=== PATIENT | male | born 1950 | race Caucasian/White ===

== ENCOUNTER 2019-12-15 10:42 | Day surgery (SDC) | payer MEDICARE, BC ==
[~2019-12-15 10:42] MED LIST: Lactated Ringers 1,000 ML IV SCH; Sodium Chloride 0.9% 10 ML Syringe FLUSH PRN
[2019-12-15] MEDS ORDERED: Propofol 200 MG/20 ML SDV ONE ×2 (11:48→13:24)
[2019-12-15] MEDS ORDERED: fentaNYL 100 MCG/2 ML SDV ONE (11:48)
[2019-12-15 14:26] VITALS: BP 150/73; PULSE 49
--- NOTE | 2019-12-15 19:15 | OR ---
PRE-OPERATIVE DIAGNOSES: 1. History of colon cancer status post left hemicolectomy back in 2001. 2. History of colon polyps. The patient's last colonoscopy in 01/2016 was normal. POST-OPERATIVE DIAGNOSES: 1. 3 tiny polyps removed using cold forceps. a. 2 mm polyp at 85 cm. b. 3 mm polyp at 65 cm. c. 2 mm polyp at 50 cm. 2. Rths-bj-pokhelam left-sided diverticulosis. 3. Previous anastomosis site at 10 to 15 cm, which was normal in appearance. 4. Mild hemorrhoids. PROCEDURE: colonoscopy with polypectomy x3 using cold forceps. ANESTHESIA: Monitored anesthesia care. BOWEL PREP: Fair to good. Elfego is a 69-year-old male, who was brought to the endoscopy suite after discussing risks and benefits of the procedure. Informed consent was obtained for conscious sedation and colonoscopy with or without biopsy and/or polypectomy. We also discussed possibility of missed lesions. Pre-procedure exam was unremarkable. IV, oxygen, and monitors were placed. The patient was placed in the left lateral decubitus position. Sedation was administered and a digital rectal exam was performed and unremarkable except for some mild hemorrhoids. Colonoscope was passed into the rectum and slowly advanced all the way to the cecum. Cecum was viewed and photographed. The colonoscope was slowly withdrawn and the mucosa was closed observed in a direct circumferential manner. The ascending colon revealed 2 mm polyp at 85 cm, removed using cold forceps. The Transverse colon revealed a 3 mm polyp at 65 cm, removed using cold forceps. Descending colon revealed 2 mm polyp at 50 cm, removed using cold forceps. Descending and sigmoid colon did reveal some [id number] left-sided diverticulosis. There was also previous anastomosis site at 10-15 cm from the anal verge. Retroflexion was performed and rectal mucosa was remarkable for some mild hemorrhoids, not acutely inflamed. Scope was removed. The patient tolerated the procedure well. The patient was monitored until that baseline status. Discharge instructions were reviewed and the patient was discharged in good condition. COMPLICATIONS: None. TOTAL TIME: 21 minutes. ESTIMATED BLOOD LOSS: Less than 1 mL. RECOMMENDATIONS/FOLLOW-UP: We will await results of path report to determine ideal followup interval. We will have the patient hold his aspirin for 3 days to limit any chance of bleeding from the polypectomy sites. I would like to kindly thank Dr. Lomeli for this referral. DMB: 12/15/2019 14:40:47 MODL: 12/15/2019 19:08:19 /[id number]
== END 2019-12-15 15:15 | disposition home or self-care (01) ==
LOC: VM.SDS 10:42
PROVIDERS: ATTEND Family Medicine
DX: Z12.11 Encounter for screening for malignant neoplasm of colon (principal); D12.2 Benign neoplasm of ascending colon; D12.3 Benign neoplasm of transverse colon; D12.4 Benign neoplasm of descending colon; K57.30 Diverticulosis of large intestine without perforation or abscess without bleeding; K64.9 Unspecified hemorrhoids; I10 Essential (primary) hypertension; M10.9 Gout, unspecified; G47.33 Obstructive sleep apnea (adult) (pediatric); E78.5 Hyperlipidemia, unspecified; R73.01 Impaired fasting glucose; M17.12 Unilateral primary osteoarthritis, left knee; E66.9 Obesity, unspecified; Z68.38 Body mass index [BMI] 38.0-38.9, adult; Z87.891 Personal history of nicotine dependence; Z98.890 Other specified postprocedural states; Z79.82 Long term (current) use of aspirin; Z79.899 Other long term (current) drug therapy; Z88.0 Allergy status to penicillin; Z90.49 Acquired absence of other specified parts of digestive tract; Z85.038 Personal history of other malignant neoplasm of large intestine; Z86.010 Personal history of colon polyps; Z80.0 Family history of malignant neoplasm of digestive organs; Z99.89 Dependence on other enabling machines and devices
CPT/HCPCS: 00811; 45380; J2704; J3010; J7120; 88305

== ENCOUNTER 2023-03-27 08:28 | Day surgery (SDC) | payer MEDICARE, BC ==
[~2023-03-27 08:28] MED LIST changes: -Sodium Chloride 0.9% 10 ML Syringe FLUSH PRN
[2023-03-27] MEDS ORDERED: Propofol 200 MG/20 ML SDV ONE (09:55)
[2023-03-27] MEDS ORDERED: fentaNYL 100 MCG/2 ML SDV ONE (09:55)
[2023-03-27] MEDS ORDERED: Midazolam 1 MG/ML 2 ML SDV ONE (10:18)
[2023-03-27 11:08] VITALS: BP 146/67; PULSE 56
== END 2023-03-27 11:33 | disposition home or self-care (01) ==
LOC: VM.SDS 08:28
PROVIDERS: ATTEND Student in an Organized Health Care Education/Training Program
DX: Z12.11 Encounter for screening for malignant neoplasm of colon (principal); I10 Essential (primary) hypertension; N40.0 Benign prostatic hyperplasia without lower urinary tract symptoms; E78.00 Pure hypercholesterolemia, unspecified; E79.0 Hyperuricemia without signs of inflammatory arthritis and tophaceous disease; I49.9 Cardiac arrhythmia, unspecified; E66.9 Obesity, unspecified; Z68.41 Body mass index [BMI] 40.0-44.9, adult; Z85.038 Personal history of other malignant neoplasm of large intestine; Z90.49 Acquired absence of other specified parts of digestive tract; Z79.899 Other long term (current) drug therapy; Z88.0 Allergy status to penicillin; Z88.2 Allergy status to sulfonamides; Z87.891 Personal history of nicotine dependence
CPT/HCPCS: 00812; G0105; J2704; J3010; J7120; J2250